=== PATIENT | female | born 1990 | race Caucasian/White ===

== ENCOUNTER 2019-11-01 06:49 | Emergency (ER) | payer SELFPAY ==
[~2019-11-01] VITALS: Ht 160 cm; Wt 96.0 kg
[~2019-11-01 06:49] MED LIST: CEPH-264 PO
[2019-11-01 06:57] VITALS: BP 167/100
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
[2019-11-01 07:43] LABS: BACTERIA,URINE FEW /HPF (0-FEW); BILIRUBIN,URINE NEG (NEG); CLARITY,URINE HAZY; COLOR,URINE YELLOW; GLUCOSE,URINE NEG (NEG); NITRITE,URINE NEG (NEG); RBC,URINE OCC /HPF (0-2); SQUAMOUS EPITHELIAL CELL,UR MANY /LPF; UROBILINOGEN,URINE 0.2 mg/dL (0.2 mg/dL)
[2019-11-01 07:45] LABS: U PREG PATIENT NEGATIVE (NEG)
[2019-11-01] MEDS ORDERED: traMADol 50 MG TABLET PO ONE (07:45)
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
[2019-11-01] MEDS ORDERED: KETOROLAC 60 MG/2 ML VIAL. IM ONE (08:00)
[2019-11-01] MEDS ORDERED: NAPR-683 PO (08:33)
[2019-11-01] MEDS ORDERED: CYCL-331 PO (08:33)
== END 2019-11-01 08:45 | disposition home or self-care (01) ==
LOC: ER 06:49
DX: S39.011A Strain of muscle, fascia and tendon of abdomen, initial encounter (principal); S29.011A Strain of muscle and tendon of front wall of thorax, initial encounter; F17.210 Nicotine dependence, cigarettes, uncomplicated; X50.9XXA Other and unspecified overexertion or strenuous movements or postures, initial encounter; Y93.89 Activity, other specified; Y92.89 Other specified places as the place of occurrence of the external cause; Y99.8 Other external cause status
CPT/HCPCS: 71101; 81001; 81025; 96372; 99284; J1885

== ENCOUNTER 2020-10-29 22:16 | Emergency (ER) | payer OTHER ==
[~2020-10-29] VITALS: Ht 160 cm; Wt 100.0 kg
[~2020-10-29 22:16] MED LIST changes: +CYCL-331 PO; +NAPR-683 PO
[2020-10-29] MEDS ORDERED: ORPH-16 PO (22:27)
[2020-10-29] MEDS ORDERED: ORPHENADRINE CITRATE 60 MG/2 ML VIAL. IM ONE (22:30)
[2020-10-29] MEDS ORDERED: IBUPROFEN 600 MG TABLET. PO ONE (22:30)
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
[2020-10-29 23:20] VITALS: BP 127/60
== END 2020-10-29 23:20 | disposition home or self-care (01) ==
LOC: ER 22:16
DX: S16.1XXA Strain of muscle, fascia and tendon at neck level, initial encounter (principal); F17.210 Nicotine dependence, cigarettes, uncomplicated; V89.2XXA Person injured in unspecified motor-vehicle accident, traffic, initial encounter; Y93.I9 Activity, other involving external motion; Y92.89 Other specified places as the place of occurrence of the external cause; Y99.8 Other external cause status
CPT/HCPCS: 96372; 99283; J2360

== ENCOUNTER 2020-11-02 07:30 | Emergency (ER) | payer OTHER ==
[~2020-11-02] VITALS: Ht 160 cm; Wt 100.0 kg
[2020-11-02 07:30] VITALS: BP 179/102
[~2020-11-02 07:30] MED LIST changes: +ORPH-16 PO
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
== END 2020-11-02 09:19 | disposition home or self-care (01) ==
LOC: ER 07:30
DX: M54.5 Low back pain (principal); M54.2 Cervicalgia; R53.83 Other fatigue; M62.830 Muscle spasm of back; F17.210 Nicotine dependence, cigarettes, uncomplicated; V98.8XXA Other specified transport accidents, initial encounter; Y93.89 Activity, other specified; Y92.89 Other specified places as the place of occurrence of the external cause; Y99.8 Other external cause status
CPT/HCPCS: 72040; 72080; 99284